=== PATIENT | male | born 1965 | race Caucasian/White ===

== ENCOUNTER 2016-09-30 11:19 | Emergency (ER) | payer MEDICAID ==
[2016-09-30 11:37] VITALS: BP 160/91
--- OUTSIDE RECORDS SUMMARY | 2016-09-30 14:05 | XMS REPORT | Continuity of Care Document ---
:1965 Author Organization [facility] ([facility]) Address [address] [place] [address] Phone [phone] Care Team Providers Name Role Phone [phone], Need To Check Primary Care Provider Unavailable Source Comments This disclosure is being made pursuant to the Care Everywhere program, applicable federal and state laws, and may not contain all informaitonavailable regarding this patient.[facility] ([facility]) Active Allergies and Adverse Reactions No Active Allergies Current Medications Prescription Sig. Disp. Refills Start Date End Date Status hydroxychloroquine take 2 Tabs by 60 Tab 11 11/30/2008 Active (PLAQUINIL) 200 mg mouth daily for 30 tablet days. Indications: eosinophillic fasciitis nabumetone (RELAFEN) 750 take 1 Tab by mouth 120 Tab 6 04/05/2009 Active mg tablet 2 times daily. Indications: eosinophillic fasciitis hydroxychloroquine take 1 Tab by mouth 120 Tab 6 04/05/2009 Active (PLAQUINIL) 200 mg 2 times daily. tablet Indications: eosinophillic fasciitis Active Problems Problem Noted Date Encounter for long-term (current) use of steroids 06/25/2006 Immunizations Name Dates Previously Given Next Due Influenza, unspecified 04/16/2007 Pneumococcal, unspecified 06/01/2007 Social History Tobacco Use Types Packs/Day Years Used Date Never Assessed Last Filed Vital Signs Vital Sign Reading Time Taken Blood Pressure 157/100 04/05/2009 8:20 AM CDT Pulse 97 04/05/2009 8:20 AM CDT Temperature 36.7 C (98.1 F) 04/05/2009 8:20 AM CDT Respiratory Rate 18 05/06/2006 12:28 PM [employer] Height 1.806 m (5' 11.1") 05/06/2006 12:28 PM [employer] Weight 94.8 kg (208 lb 15.9 oz) 04/05/2009 8:20 AM CDT Body Mass Index 29.07 04/05/2009 8:20 AM CDT Oxygen Saturation - - Plan of Care Health Maintenance Due Date Last Done Comments HCV Screening 1965 Hepatitis B Vaccine (1 of 3 - Primary Series) 1965 Tdap Vaccine 01/11/1975 Lipid Disorder Screening 01/11/1982 Td Vaccine 01/11/1982 Pneumococcal Vaccine (1 of 3 - PCV13) 01/11/1983 Colonoscopy 01/11/2014 Prostate Cancer Screening 01/11/2014 Influenza Vaccine: Seasonal (Season Ended) 2017 04/16/2007 Results from Last 3 Months Not on file
== END 2016-09-30 13:37 | disposition left against medical advice (07) ==
LOC: ER 11:19
DX: Z53.21 Procedure and treatment not carried out due to patient leaving prior to being seen by health care provider (principal)